=== PATIENT | female | born 1990 | race Hispanic/Latino ===

== ENCOUNTER 2019-08-27 09:49 | Inpatient (IN) | payer BC, OTHER ==
[~2019-08-27] VITALS: Ht 157.5 cm; Wt 72.0 kg
--- NOTE | ~2019-08-27 | OR ---
[facility] [address] [place], [place] [address] Draft DATE OF OPERATION: 08/28/2019 SURGEON: Abbey Moses MD CISSP: Dr. Edge. PREOPERATIVE DIAGNOSES: Post-dates , poor antepartum testing, failure to descend and failed trial of vacuum. POSTOPERATIVE DIAGNOSES: Post-dates , poor antepartum testing, failure to descend and failed trial of vacuum, delivered. PROCEDURE: Trial of vacuum, primary section with low segment transverse uterine incision with J extension. ANESTHESIA: General. ESTIMATED BLOOD LOSS: 750 mL. DRAINS: Moralez catheter. INDICATIONS AND FINDINGS: The patient is a 29-year-old female, 2, para 0, ectopic 1, who was admitted at 40 and 4/7th weeks after poor antepartum testing with a biophysical of 4/8. The patient was admitted and induced. Artificial rupture of membranes was carried out as she was initially 4 cm and [place]. She failed to make much progress. Pitocin augmentation was done. She had slow but steady progress through the active stage. After reaching complete, she pushed well in many positions for 4 hours. At that point, the baby was at a +3 station and it was felt reasonable to give a trial of vacuum. This has not been offered previously as the OR had been occupied by another surgery. heart tones throughout this time were generally very reassuring with accelerations. The trial of vacuum was offered and accepted. The bladder was drained and the vacuum applied. However, there was no descent with two pulls of the vacuum and the procedure was PATIENT NAME: KARYNA COBOS OPERATIVE REPORT DATE OF : [birth year] REPORT #: [id number] PHYSICIAN: ABBEY MOSES MD PCP: ABBEY MOSES MD REPORT IS CONFIDENTIAL AND NOT TO BE RELEASED WITHOUT AUTHORIZATION [facility] [address] [place] [id number] Draft abandoned. The patient was then taken to the operating room where she was delivered of a little girl via lower segment transverse uterine incision with the J extension with Apgars of 8 and 9 and weight of 7 pounds 9 ounces. The baby was initially ROT that was actually delivered as a breech. DESCRIPTION OF PROCEDURE: The patient was prepped and draped in the supine position. A Pfannenstiel skin incision was made and carried down through the fascia. The incision was extended laterally. The inferior and superior fascial flaps were then created. The muscles were bluntly divided and the peritoneum opened bluntly and the incision extended. The Jeo retractor was placed. The uterine incision was made at the upper aspect of the peritoneal reflection. The incision was extended bluntly. However, at that point, an attempt was made to deliver the head, but it was deeply wedged and this could not be done. The J extension was done on her left and even with this added room, the head could not be brought out, and because of this, the decision was made then to deliver the baby as a breech. The legs were grasped and brought down through the incision and this allowed the head to come up out of the pelvis. The baby was delivered easily at that point. Following this, the placenta was removed manually. The edges of the incision were grasped with T clamps and the J extension was 1st closed with a running locking suture of 0 Monocryl. The remaining lower segment incision was also closed with a running locking stitch of 0 Monocryl. A uuqboc-bi-sckzc was used to ligate the uterine vessels on the patient's left as well as there was some bleeding near that angle. A 2nd layer closure was done over the J extension with a running suture of 0 Monocryl. The remaining lower segment incision was also closed with a running suture of the 0 Monocryl imbricating the incision. The superficial sutures of the 0 Monocryl were used to close the serosa on the J port. Following this, the abdomen was irrigated and good hemostasis was noted. The retractor was removed and the peritoneum identified. An ACell graft was laid over the lower segment to aid in healing. The peritoneum was then identified and the peritoneum was closed with a running suture of 3-0 Vicryl. The muscles were brought together with interrupted sutures of 0 Vicryl. There were some bleeding points on the muscle, which were controlled with cautery as well as a aquxpx-lm-pidzv of 0 Vicryl at the lower inferior fascial portion. This area was irrigated and good hemostasis was noted. ACell powder was sprinkled over the muscles to aid in healing. The fascia was then closed from each angle to the midline with a running suture of 0 Vicryl. The subcutaneous tissue was irrigated and bleeding points controlled with cautery. Interrupted sutures of 3-0 Vicryl were used in the subcu space to close this. The skin was closed with conner. It should be noted that she did have some atony and she did receive IV Pitocin drip, IM Methergine and Cytotec per rectum as well as IM Hemabate. All sponge and needle counts were correct. She was taken to the recovery room in good condition. PATIENT NAME: KARYNA COBOS OPERATIVE REPORT DATE OF : [birth year] REPORT #: [id number] PHYSICIAN: ABBEY MOSES MD PCP: ABBEY MOSES MD REPORT IS CONFIDENTIAL AND NOT TO BE RELEASED WITHOUT AUTHORIZATION [address] [place] [address] Draft MD BETSEY Bauer/MODL /[id number] cc: Sebas Edge DO Copies: SEBAS EDGE DO ~ PATIENT NAME: KARYNA COBOS OPERATIVE REPORT DATE OF : [birth year] REPORT #: [id number] PHYSICIAN: ABBEY MOSES MD PCP: ABBEY MOSES MD REPORT IS CONFIDENTIAL AND NOT TO BE RELEASED WITHOUT AUTHORIZATION
--- NOTE | 2019-08-27 18:54 | PR ---
[facility] [address] [facility] [place], [place] [address] Signed Progress Notes IP Datetime Report Generated by CPN: 08/27/2019 18:54 PROGRESS NOTES: [id number] Impression: Slow Progression of Labor Procedures: Intrauterine Pressure Catheter; Sterile Vag Exam Plan: Continue present management Informed Consent Obtain: Vaginal Delivery; Induction of Labor; Risks, Benefits and Alternatives Discussed VITAL SIGNS: [id number] Vital Signs: Reviewed; Within Normal Limits EXAM: [id number] Dilatation: 5.0 Effacement: 90 Station: -2 Uterine Contractions: q 2 to 3 min MEMBRANES: [id number] Comments: Slow progress. Will place IUPC and increase pitocin as needed. Fetus A: [id number] FHR Baseline: 145 Variability: Minimal - Undetectable to <5bpm Accelerations: 15X15 Decelerations: None FHR Category: Category II Presentation: Vertex Comments on Fetus A: accels present though decreased variability. Fetus B: [id number] Signing Physician: Abbey Moses MD Copies: ~ *Electronically Signed* 08/27/19 1854 ABBEY MOSES MD PATIENT NAME: KARYNA COBOS PROGRESS NOTE DATE OF : [birth year] PHYSICIAN: ABBEY MOSES MD RPT #: [id number] REPORT IS CONFIDENTIAL AND NOT TO BE RELEASED WITHOUT AUTHORIZATION
--- NOTE | 2019-08-28 08:22 | PR ---
[facility] [address] [facility] [place], [place] [address] Signed PP Progress Notes Datetime Report Generated by CPN: 08/28/2019 08:22 SUBJECTIVE: [id number] Pain: Within normal limits Vital Signs: [id number] Vital Signs: Reviewed; Within Normal Limits EXAM: [id number] Cardiovascular: Not Done Respiratory: Not Done Abdomen/Uterus: Abnormal Lochia: Normal Vulva/Perineum: Not Done Breasts: Not Done CVA Tenderness: Not Done Extremities: Normal Incision: Not Applicable Progress: Not Applicable Exam Comments: Fundus firm, NT @ U-1. H/H 9.9/29.2, WBC 7.4, plat 148k IMPRESSION/PLAN/PROCEDURES: [id number] Impression: Normal progression Plan: Continue present management Progress Notes: Doing well. Will continue present care. Signing Physician: Abbey Moses MD Copies: ~ *Electronically Signed* 08/28/19821 ABBEY MOSES MD PATIENT NAME: KARYNA COBOS PROGRESS NOTE DATE OF : [birth year] PHYSICIAN: ABBEY MOSES MD RPT #: [id number] REPORT IS CONFIDENTIAL AND NOT TO BE RELEASED WITHOUT AUTHORIZATION
--- NOTE | 2019-08-28 13:04 | NUR ---
08/28/19 1304 Renetta Travis 1249-PATIENT ARRIVED TO PACU ON 6L MASK RR EVEN ST 110-120. PATIENT MOVING EXTREMITIES. FUNDUS FIRM WITH MASSAGE AT UMBILICUS LIGHT RUBRA DRAINAGE. PATIENT MOANS WITH FUNDUS CHECK. IV TYLENOL INFUSING. PATIENT VERY DROWSY AND DOZES BACK TO SLEEP. 1303-PATIENT SLEEPING RR EVEN. ST 112. 6L MASK 100% IV TYLENOL INFUSING. PATIENT AROUSES TO VERBAL STIMULI DENIES NAUSEA REPORTS "HURTS" DOZES BACK TO SLEEP RR EVEN.
--- NOTE | 2019-08-29 08:01 | PR ---
[facility] [address] [facility] [place], [place] [address] Signed PP Progress Notes Datetime Report Generated by CPN: 08/29/2019 08:01 SUBJECTIVE: [id number] Pain: Within normal limits Nausea/Vomiting: Denies Flatus: Yes Bowel Movement: No Vital Signs: [id number] Vital Signs: Reviewed; Within Normal Limits Notable Details: Temp 101.5. HR 138 EXAM: [id number] Cardiovascular: Normal Respiratory: Normal Abdomen/Uterus: Normal Lochia: Normal Vulva/Perineum: Not Done Breasts: Not Done CVA Tenderness: Normal Extremities: Normal Incision: Not Applicable Progress: Normal Exam Comments: Fundus firm U-2 nontender IMPRESSION/PLAN/PROCEDURES: [id number] Impression: Normal progression Plan: Discharge Progress Notes: Pt seen and examined. Doing well. Ambulating, voiding, and tolerating full diet. Pain and lochia minimal. well. No fevers/chills or other concerns. Desires d/c home today. Signing Physician: Sebas Edge DO Copies: ~ *Electronically Signed* 08/29/19 08 SEBAS EDGE DO PATIENT NAME: KARYNA COBOS PROGRESS NOTE DATE OF : [birth year] PHYSICIAN: SEBAS EDGE DO RPT #: [id number] REPORT IS CONFIDENTIAL AND NOT TO BE RELEASED WITHOUT AUTHORIZATION
[2019-08-29] MEDS ORDERED: METFORMIN HCL500 MG PO (13:15)
[2019-08-29] MEDS ORDERED: FREESTYLE LITE1 EAC1 MISC (13:15)
--- NOTE | 2019-08-29 14:34 | PR ---
[facility] [address] [place] [address] Signed PP Progress Notes Datetime Report Generated by CPN: 08/29/2019 14:34 SUBJECTIVE: [id number] Pain: Within normal limits Nausea/Vomiting: Denies Flatus: No Bowel Movement: No Vital Signs: [id number] Vital Signs: Reviewed; Within Normal Limits Notable Details: no fever since last pm EXAM: [id number] Cardiovascular: Normal Respiratory: Normal Abdomen/Uterus: Abnormal Lochia: Normal Vulva/Perineum: Not Done Breasts: Not Done CVA Tenderness: Not Done Extremities: Normal Incision: Normal Progress: Normal Exam Comments: Fundus firm, NT @ U-1. H/H 9.5/28.1, WBC 19.1, plat 180k IMPRESSION/PLAN/PROCEDURES: [id number] Impression: Normal progression Plan: Continue present management Progress Notes: Doing well. No fever since last pm. On triple antibiotics. Will continue. Signing Physician: Abbey Moses MD Copies: ~ *Electronically Signed* 08/29/19 1434 ABBEY MOSES MD PATIENT NAME: KARYNA COBOS PROGRESS NOTE DATE OF : [birth year] PHYSICIAN: ABBEY MOSES MD RPT #: [id number] REPORT IS CONFIDENTIAL AND NOT TO BE RELEASED WITHOUT AUTHORIZATION
--- NOTE | 2019-08-30 08:35 | PR ---
[facility] [address] [facility] [place], [place] [address] Signed PP Progress Notes Datetime Report Generated by CPN: 08/30/2019 08:35 SUBJECTIVE: [id number] Pain: Within normal limits Nausea/Vomiting: Denies Flatus: Yes Bowel Movement: No Vital Signs: [id number] Vital Signs: Reviewed; Within Normal Limits Notable Details: no fever since last pm EXAM: [id number] Cardiovascular: Normal Respiratory: Normal Abdomen/Uterus: Abnormal Lochia: Normal Vulva/Perineum: Not Done Breasts: Not Done CVA Tenderness: Not Done Extremities: Normal Incision: Normal Progress: Normal Exam Comments: Abdomen with active BS. Fundus firm, NT @ U-1. H/H 8.4/24.8, WBC 16.2 S80.4/L13.3, plat 183k IMPRESSION/PLAN/PROCEDURES: [id number] Impression: Normal progression; Endometritis Plan: Continue present management; Antibiotic therapy Progress Notes: Doing well. She is afebrile though still with elevated WBC and left shift. Unfortunately, she did not receive her gent yesterday so will order daily with the amp and clinda. Signing Physician: Abbey Moses MD Copies: ~ *Electronically Signed* 08/30/19 0835 ABBEY MOSES MD PATIENT NAME: KARYNA COBOS PROGRESS NOTE DATE OF : [birth year] PHYSICIAN: ABBEY MOSES MD RPT #: [id number] REPORT IS CONFIDENTIAL AND NOT TO BE RELEASED WITHOUT AUTHORIZATION
--- NOTE | 2019-08-31 08:38 | PR ---
[facility] [address] [facility] [place] [address] Signed PP Progress Notes Datetime Report Generated by CPN: 08/31/2019 08:38 SUBJECTIVE: [id number] Pain: Within normal limits Nausea/Vomiting: Denies Flatus: Yes Bowel Movement: Yes Vital Signs: [id number] Vital Signs: Reviewed; Within Normal Limits Notable Details: no fever since last pm EXAM: [id number] Cardiovascular: Normal Respiratory: Normal Abdomen/Uterus: Abnormal Lochia: Normal Vulva/Perineum: Not Done Breasts: Not Done CVA Tenderness: Not Done Extremities: Normal Incision: Normal Progress: Normal Exam Comments: Abdomen with active BS. Fundus firm, NT @ U-1. H/H 04/12/23.9, WBC 10.1 S64/L28.6, plat 233k IMPRESSION/PLAN/PROCEDURES: [id number] Impression: Normal progression Plan: Remove conner; Discharge Progress Notes: Doing well. WBC much improved. Will D/C home today. Signing Physician: Abbey Moses MD Copies: ~ *Electronically Signed* 08/31/19 0838 ABBEY MOSES MD PATIENT NAME: KARYNA COBOS PROGRESS NOTE DATE OF : [birth year] PHYSICIAN: ABBEY MOSES MD RPT #: [id number] REPORT IS CONFIDENTIAL AND NOT TO BE RELEASED WITHOUT AUTHORIZATION
== END 2019-08-31 12:10 | disposition home or self-care (01) | DRG 787 ==
LOC: FBC 09:49
PROVIDERS: ADMIT Obstetrics & Gynecology
PROC: 10H07YZ Insertion of Other Device into Products of Conception, Via Natural or Artificial Opening (ICD-10-PCS; 2019-08-27)
PROC: 00HU33Z Insertion of Infusion Device into Spinal Canal, Percutaneous Approach (ICD-10-PCS; 2019-08-27)
PROC: 3E0R3BZ Introduction of Anesthetic Agent into Spinal Canal, Percutaneous Approach (ICD-10-PCS; 2019-08-27)
PROC: 10D00Z1 Extraction of Products of Conception, Low, Open Approach (ICD-10-PCS; principal; 2019-08-28 12:00)
PROC: 3E02340 Introduction of Influenza Vaccine into Muscle, Percutaneous Approach (ICD-10-PCS; 2019-08-31)
DX: O48.0 Post-term pregnancy (principal); O86.12 Endometritis following delivery; O41.03X0 Oligohydramnios, third trimester, not applicable or unspecified; Z3A.40 40 weeks gestation of pregnancy; Z37.0 Single live birth; O32.4XX0 Maternal care for high head at term, not applicable or unspecified; O32.1XX0 Maternal care for breech presentation, not applicable or unspecified; O75.89 Other specified complications of labor and delivery; O63.1 Prolonged second stage (of labor); O66.5 Attempted application of vacuum extractor and forceps; O99.284 Endocrine, nutritional and metabolic diseases complicating childbirth; E88.81 Metabolic syndrome and other insulin resistance; O24.420 Gestational diabetes mellitus in childbirth, diet controlled; Z23 Encounter for immunization; Z88.2 Allergy status to sulfonamides; Z79.84 Long term (current) use of oral hypoglycemic drugs
CPT/HCPCS: 01961; 36415; 80048; 80170; 82803; 85025; 85027; 90688; A9270; G0008; J0131; J0290; J0330; J0690; J1170; J1580; J2210; J2250; J2270; J2405; J2590; J2795; J3010; J3490; J7060; J7121

== ENCOUNTER 2021-05-29 14:41 | Observation (INO) | payer BC, OTHER ==
[~2021-05-29] VITALS: Ht 157.5 cm; Wt 73.5 kg
--- NOTE | ~2021-05-29 | HP ---
[facility] [address] [place], [place] [address] Draft ADMISSION DATE: 05/29/[address] Reyes. CHIEF COMPLAINT: Possible ectopic . HISTORY: The patient is a 30-year-old G3, P1, E1, last menstrual period 04/12/2021, complained of early with bleeding for the past two weeks, which became much heavier today. She also had more right lower quadrant pelvic pain today and describes slight lightheadedness. No dizziness. No shoulder pain. She has been followed with serial hCGs for possible ectopic , but they have been rising appropriately, but with increased pain and bleeding, came to the emergency room this evening. PAST SURGERY HISTORY: OB, x1 in 2019. Surgery for right tubal in 2017. The patient states that she did not have the tube removed at that time. insulin resistance PCOS. CURRENT MEDICATIONS: Metformin 1000 mg daily and vitamins. ALLERGIES: Sulfa. SOCIAL HISTORY: Nonsmoker. Alcohol approximately two times a month. No drugs. PHYSICAL EXAMINATION: GENERAL: The patient is alert, oriented, no acute distress. HEENT: Normal. HEART: Tachycardic with regular rhythm. LUNGS: Clear. ABDOMEN: Soft, nondistended, slightly tender in the right lower quadrant. No guarding. No rebound. PELVIC: Deferred. EXTREMITIES: Normal. VITAL SIGNS: Pulse 113, respirations 20, blood pressure 129/84. LABORATORY DATA: PATIENT NAME: KARYNA COBOS HISTORY AND PHYSICAL DATE OF : [birth year] REPORT #: [id number] PHYSICIAN: RODOLFO REYES MD PCP: JOCELYNE MOSES MD REPORT IS CONFIDENTIAL AND NOT TO BE RELEASED WITHOUT AUTHORIZATION [facility] [address] [place], [place] [address] Draft Hemoglobin and hematocrit 12.0 and 35.3, hCG today was . Blood type A-positive. Ultrasound showed irregular echoes in the uterine cavity. No gestational sac and no pole. No adnexal masses, but moderate amount of complex fluid mostly in the posterior cul-de-sac, but fluid also around both adnexa and in the anterior cul-de-sac. IMPRESSION: Probable ruptured tubal . PLAN: I discussed her symptoms and the labs and ultrasound results that are somewhat confusing with abnormally rising hCG, but at that level would expect to see some signs of the and none were seen on ultrasound with the increasing pain, bleeding, and tachycardia as well as the complex fluid in the pelvis, the most likely scenario is ruptured tubal . I recommend diagnostic laparoscopy with possible salpingectomy for ruptured tubal . I discussed the fact that there is still possible intrauterine , but very unlikely, so we will try to avoid any uterine manipulation, but cannot guarantee an intrauterine will be normal. We will continue. I discussed with ruptured tubal , the best treatment is removal of the tube, particularly since she had previous tubal both thought to be on the right side. I did discuss possibility of this being on the left side and she is fine with removal of the tube no matter which side the happens to be. We discussed the procedure, risks and benefits and follow up. The patient agrees to surgery and did sign consent. OR crew and anesthesia were called and will take her to the OR directly. Rodolfo Reyes MD MJB/MODL /[id number] cc: Jocelyne Moses MD Copies: JOCELYNE MOSES MD PATIENT NAME: KARYNA COBOS HISTORY AND PHYSICAL DATE OF : [birth year] REPORT #: [id number] PHYSICIAN: RODOLFO REYES MD PCP: JOCELYNE MOSES MD REPORT IS CONFIDENTIAL AND NOT TO BE RELEASED WITHOUT AUTHORIZATION [address] [address] Draft ~ PATIENT NAME: KARYNA COBOS HISTORY AND PHYSICAL DATE OF : [birth year] REPORT #: [id number] PHYSICIAN: RODOLFO REYES MD PCP: JOCELYNE MOSES MD REPORT IS CONFIDENTIAL AND NOT TO BE RELEASED WITHOUT AUTHORIZATION
--- NOTE | ~2021-05-29 | OR ---
[facility] [address] [place], [place] [address] Draft DATE OF OPERATION: 05/29/2021 SURGEON: Rodolfo Reyes MD The patient of Dr. Reyes PREOPERATIVE DIAGNOSIS: Probable ruptured ectopic . POSTOPERATIVE DIAGNOSIS: Ruptured right tubal . PROCEDURE: Laparoscopic right salpingectomy and removal of ruptured tubal . PROGRAM ENGAGEMENT DIRECTOR: Dr. Katz. ANESTHESIA: General. ESTIMATED BLOOD LOSS: 25 mL plus additional 200 mL already in her abdomen and pelvis from the ruptured tubal . SPECIMEN: Right fallopian tube in tubal . DRAINS: None. PACKING: None. FINDINGS: Cervix, thick, closed. Vagina, slight blood. Uterus normal size and shape. The anterior and posterior cul-de-sac free of any endometriosis or adhesions. There was moderate amount of dark blood in the posterior cul-de-sac and also the anterior cul-de-sac and around the bowel. The left tube was normal in length and normal-appearing fimbriated end and no adhesions. The left ovary is normal size and PATIENT NAME: KARYNA COBOS OPERATIVE REPORT DATE OF : [birth year] REPORT #: [id number] PHYSICIAN: RODOLFO REYES MD PCP: ABBEY MOSES MD REPORT IS CONFIDENTIAL AND NOT TO BE RELEASED WITHOUT AUTHORIZATION [facility] [address] [place] [address] Draft shape without any evidence of endometriosis or adhesions. The right tube was dilated approximately 2 x 3 cm in the midportion of the tube and dilated at the fimbriated end with clot coming out of the tube. There were no adhesions present. The right ovary is normal in size and shape without any evidence of endometriosis or adhesions. Pelvis was free of any adhesions. COMPLICATIONS: None. DESCRIPTION OF PROCEDURE: The patient was brought into the operating room, placed in the supine position. After adequate general anesthesia was obtained, she was placed in dorsal lithotomy position, prepped and draped in usual sterile fashion. A Moralez catheter was placed in the bladder and a sponge stick placed in the vagina. Attention was then drawn to the abdomen. A small infraumbilical skin incision was made after injecting the area with 0.25% Marcaine with epinephrine. The subcutaneous tissue was dissected with Metzenbaum scissors. The fascia identified, grasped with hemostats, elevated, nicked with Metzenbaum scissors and extended in the transverse fashion using Metzenbaum scissors. Retention stitches of 0 Vicryl suture placed above and below the incision. Finger dissection was used to separate the muscle and open the peritoneum. An S retractor was inserted into the incision and the Alysa cannula and sleeve entered the abdomen under direct visualization. The S retractor was removed and the balloon filled with air. The outer sleeve was brought down to the skin and was attached with two retention stitches. Trocar was removed. Carbon dioxide was used as distending medium. The above findings were noted. Two 5 mm ports were placed, one on each side just below the level of the umbilicus and approximately 10 cm lateral to the midline on each side. The abdominal wall was transilluminated to avoid any vessels. 0.25% Marcaine with epinephrine used to inject the area and scalpel was used to make a small skin incision. A bladed 5-mm trocar and sleeve entered the abdomen under direct visualization. The balloons were filled with air and the trocar was removed. Blunt graspers were inserted through each sleeve. The above findings were confirmed. The ligature bipolar cautery forceps were then used to cauterize and cut the mesosalpinx starting at the fimbriated end and continuing down the length of the tube until the proximal end pass the tubal . The tube was then transected by cauterizing in two places and cutting the tube again with the [place] LigaSure bipolar forceps. Good hemostasis was noted. The entire pelvis was then thoroughly irrigated, suctioned and examined and all the blood removed as much as possible. The entire pelvis was carefully inspected. No bleeding was noted. No more blood was seen, so at this point, all instruments were removed. The gas allowed to escape and the final sleeve removed. The fascia was closed using running stitch of 0 Vicryl suture and the retention stitches tied together for further support. Three skin incisions were closed using subcuticular stitches of 4-0 Vicryl suture. PATIENT NAME: KRAYNA COBOS OPERATIVE REPORT DATE OF : [birth year] REPORT #: [id number] PHYSICIAN: RODOLFO REYES MD PCP: ABBEY MOSES MD REPORT IS CONFIDENTIAL AND NOT TO BE RELEASED WITHOUT AUTHORIZATION [facility] [address] [place], [place] [address] Draft Sponge stick and Moralez were removed. The patient tolerated the procedure well, went to recovery room in good condition. The sponge, needle, and instrument count were correct at the end of the procedure. The right fallopian tube with tubal was sent to Pathology for identification. Rodolfo Reyes MD MJB/MODL /[id number] cc: Abbey Moses MD Copies: ABBEY MOSES MD ~ PATIENT NAME: KARYNA COBOS OPERATIVE REPORT DATE OF : [birth year] REPORT #: [id number] PHYSICIAN: RODOLFO REYES MD PCP: ABBEY MOSES MD REPORT IS CONFIDENTIAL AND NOT TO BE RELEASED WITHOUT AUTHORIZATION
[~2021-05-29 14:41] MED LIST: FREESTYLE LITE1 EAC1 MISC; METFORMIN HCL500 MG PO
[2021-05-29] MEDS ORDERED: HYDROCODON-ACE1 EA10 PO (22:57)
[2021-05-29] MEDS ORDERED: MOTRIN IB200 MG PO (22:58)
== END 2021-05-30 00:29 | disposition home or self-care (01) ==
LOC: ED 14:41 → MS 21:15 → ED 21:24 → MS 21:25
PROVIDERS: ADMIT General Practice; ATTEND General Practice
PROC: 10T28ZZ Resection of Products of Conception, Ectopic, Via Natural or Artificial Opening Endoscopic (ICD-10-PCS; principal; 2021-05-29 19:32)
DX: O00.101 Right tubal pregnancy without intrauterine pregnancy (principal); Z88.2 Allergy status to sulfonamides; Z20.822 Contact with and (suspected) exposure to COVID-19
CPT/HCPCS: 76801; 76817; 81001; 84702; 85025; 86900; J0330; J1100; J1885; J2250; J2405; J2704; J2765; J3010; J7121; U0003